=== PATIENT | female | born 1975 | race Caucasian/White ===

== ENCOUNTER 2018-09-12 15:12 | Emergency (ER) | payer BC, OTHER ==
[~2018-09-12] VITALS: Ht 157.5 cm; Wt 88.0 kg
[~2018-09-12 15:12] MED LIST: ACET500T98 PO; IBUP100T33 PO
[2018-09-12 15:16] VITALS: Ht 157.5 cm; Wt 88.0 kg
[2018-09-12] MEDS ORDERED: KETOROLAC 30 MG INJ IM STA (17:37)
--- NOTE | 2018-09-12 18:30 | ERD ---
ER Documentation Chief Complaint Chief Complaint FEVER, ARIAS, WHITE VAGINAL DISCHARGE X 2 WEEKS HPI 42-year-old female with no past medical or surgical history who presents with 2- week complaint of vaginal discharge, lower abdominal pain, and fevers. States she has noticed clear fishy smelling vaginal discharge since Monday. Describes abdominal pelvic pain as a dull type pain. She has had intermittent nausea but no vomiting. Reports subjective fevers. She presented to urgent care earlier today but did not stay given she was told that some of her lab results will take approximately 7 days to return results. Last menstrual period was on September 01. She took Advil for her fevers. She reports being sexually active with one partner who is her . Denies history of STI's. Doubt she is as her had vasectomy several years ago. She otherwise is without complaint. Nontoxic-appearing with stable triage vital signs. ROS All systems reviewed and are negative except as per history of present illness. Medications Home Meds Active Scripts Metronidazole* (Flagyl*) 500 Mg Tablet, 500 MG PO BID for 7 Days, TAB Prov:GREGORY REYES PA-C 09/12/18 Cephalexin* (Keflex*) 500 Mg Capsule, 500 MG PO BID for 7 Days, CAP Prov:JEUDINE,GETHO PA-C 09/12/18 Reported Medications Ibuprofen (Motrin) 100 Mg Tablet, 600 MG PO Q6 11/15/11 Acetaminophen (Tylenol) 500 Mg Tab, 500 MG PO Q4 11/15/11 Allergies Allergies: Coded Allergies: No Known Allergy (Unverified , 11/15/11) PMhx/Soc History of Surgery: Yes (KIDNEY STONE) Anesthesia Reaction: No Hx Neurological Disorder: No Hx Respiratory Disorders: No Hx Cardiac Disorders: No Hx Psychiatric Problems: No Hx Miscellaneous Medical Probl: No Hx Alcohol Use: No Hx Substance Use: No Hx Tobacco Use: No FmHx Family History: No diabetes, No coronary disease, No other Physical Exam Vitals Vital Signs Date Temp Pulse Resp B/P (MAP) Pulse Ox O2 O2 Flow FiO2 Time Delivery Rate 09/12/18 99.1 88 18 158/80 98 15:16 (106) Physical Exam I have reviewed the triage vital signs. Const: Well nourished, well developed, appears stated age Eyes: PERRL, no conjunctival injection HENT: NCAT, Neck supple without meningismus CV: RRR, Warm, well-perfused extremities RESP: CTAB, Unlabored respiratory effort GI: soft, non-tender, non-distended, no masses MSK: No gross deformities appreciated Skin: Warm, dry. No rashes Neuro: grossly non focal Psych: Appropriate mood and affect. Pelvic Exam: Papier Mache' Molder present Abdomen: tenderness to lower abdomen External Genitalia: Normal Skin Speculum: Normal vaginal mucosa, white thin vaginal discharge Bimanual: No adnexal masses or tenderness, No CMT Result Diagram: 09/12/18 [id number] Results 24 hrs Laboratory Tests Test 09/12/18 17:40 09/12/18 17:46 White Blood Count 14.9 10^3/ul Red Blood Count 4.44 10^6/ul Hemoglobin 12.4 g/dl Hematocrit 39.0 % Mean Corpuscular Volume 87.8 fl Mean Corpuscular Hemoglobin 27.9 pg Mean Corpuscular Hemoglobin Concent 31.8 g/dl Red Cell Distribution Width 13.7 % Platelet Count 305 10^3/UL Mean Platelet Volume 10.2 fl Immature Granulocytes % 0.500 % Neutrophils % 78.5 % Lymphocytes % 14.5 % Monocytes % 5.1 % Eosinophils % 0.9 % Basophils % 0.5 % Nucleated Red Blood Cells % 0.0 /100WBC Immature Granulocytes # 0.080 10^3/ul Neutrophils # 11.7 10^3/ul Lymphocytes # 2.2 10^3/ul Monocytes # 0.8 10^3/ul Eosinophils # 0.1 10^3/ul Basophils # 0.1 10^3/ul Nucleated Red Blood Cells # 0.0 10^3/ul Urine Color YELLOW Urine Clarity CLOUDY Urine pH 5.0 Urine Specific [place] 1.012 Urine Ketones 1+ mg/dL Urine Nitrite NEGATIVE mg/dL Urine Bilirubin NEGATIVE mg/dL Urine Urobilinogen NEGATIVE mg/dL Urine Leukocyte Esterase 3+ Iram/ul Urine Microscopic RBC 10 /HPF Urine Microscopic WBC 147 /HPF Urine Squamous Epithelial Cells FEW /HPF Urine Bacteria FEW /HPF Urine Mucus FEW /HPF Urine Hemoglobin 2+ mg/dL Urine Glucose NEGATIVE mg/dL Urine Total Protein NEGATIVE mg/dl Sodium Level 139 mmol/L Potassium Level 3.7 mmol/L Chloride Level 101 mmol/L Carbon Dioxide Level 25 mmol/L Anion Gap 13 Blood Urea Nitrogen 8 mg/dl Creatinine 0.55 mg/dl Est Glomerular Filtrat Rate mL/min > 60 mL/min Glucose Level 87 mg/dl Calcium Level 9.5 mg/dl POC Beta HCG, Qualitative NEGATIVE Current Medications Medications Dose Sig/Susan Start Time Status Last (Trade) Ordered Route PRN Stop Time Admin Dose Reason Admin Ketorolac 30 mg ONCE STAT 09/12/18 DC 09/12/18 Tromethamine IM 17:37 09/12/18 18:02 (Toradol) 17:38 Procedures/MDM 42-year-old female who presents with complaint of fever, vaginal discharge, lower abdominal pain. Her symptoms are likely secondary to UTI given workup. She does not have CVA tenderness on exam and is nontoxic-appearing. No h/o STDs. Not Ectopic.Unlikely gonorrhea/chlamydia given lack of risk factors. Unlikely TOA, Ovarian Torsion, PID. Unlikely AAA, cholecystitis, pancreatitis, SBO, appendicitis, or other acute abdomen. No history relapse (prior infection this month) or reinfection (prior infection this year). ED course: UA positive U/S without acute findings Wet mount positive clue cells, no trichomonas Plan discharge home on Keflex and flagyl DISPOSITION PLAN: We discussed follow up with the patient's primary care doctor within 24 to 48 hours. Patient counseled regarding my diagnostic impression and care plan. Prior to discharge all questions answered. Pt agrees with treatment plan and understands strict return precautions. Precautionary instructions provided including instructions to return to the ER if not improving or for any worsening or changing symptoms or concerns. Departure Condition: Stable GREGORY REYES PA-C Sep 12, 2018 18:28
[2018-09-12] MEDS ORDERED: CEPH-443 PO (18:39)
[2018-09-12] MEDS ORDERED: METR500T PO (19:13)
[2018-09-12 19:59] VITALS: BP 130/81; PULSE 71; RESP 16
== END 2018-09-12 19:59 | disposition home or self-care (01) ==
LOC: FTE 15:12
DX: N89.8 Other specified noninflammatory disorders of vagina (principal); R10.30 Lower abdominal pain, unspecified
CPT/HCPCS: 36415; 76830; 76856; 80048; 81001; 81025; 85025; 87210; 96372; 99285; J1885